=== PATIENT | female | born 2000 | race Two or more races ===

== ENCOUNTER 2022-04-12 10:22 | Emergency (ER) | payer MEDICAID, OTHER ==
[~2022-04-12] VITALS: Ht 165.1 cm; Wt 48.5 kg
[2022-04-12 10:33] VITALS: BP 136/91
[2022-04-12] MEDS ORDERED: SODIUM CHLORIDE 0.9% 1,000 ML IV ONE (11:00)
[2022-04-12] MEDS ORDERED: LORazepam 2MG/ML-1ML VIAL IV ONE (11:00)
== END 2022-04-12 11:31 | disposition left against medical advice (07) ==
LOC: ER 10:22
DX: F41.9 Anxiety disorder, unspecified (principal)